=== PATIENT | male | born 1960 | race American Indian/Alaskan Native ===

== ENCOUNTER 2018-03-01 02:19 | Emergency (ER) | payer OTHER ==
[2018-03-01 03:30] LABS: Basophils # (Auto) 0.1 K/mm3 (0.0-0.1); Basophils % (Auto) 1.1 % (0.0-1.8); Eosinophils # (Auto) 0.1 K/mm3 (0.0-0.4); Eosinophils % (Auto) 1.9 % (0.0-4.3); Hematocrit 43.7 % (35.5-45.6); Hemoglobin 14.3 gm/dl (11.8-15.2); Lymphocytes # (Auto) 1.5 K/mm3 (1.2-5.4); Lymphocytes % (Auto) 24.7 % (13.4-35.0); Mean Corpuscular HGB Conc 33 % (32-34); Mean Corpuscular Hemoglobin 28 pg (28-32); Mean Corpuscular Volume 86 fl (84-94); Monocytes # (Auto) 0.4 K/mm3 (0.0-0.8); Monocytes % (Auto) 7.1 % (0.0-7.3); Platelet Count 173 K/mm3 (140-440); Red Blood Count 5.07 M/mm3 (3.65-5.03); Red Cell Distribution Width 14.3 % (13.2-15.2)
[2018-03-01 04:06] LABS: BUN/Creatinine Ratio 15; Blood Urea Nitrogen 22 mg/dL (9-20); Hemolysis Index 9
--- NOTE | 2018-03-01 06:40 | Emergency Department Report ---
ED Chest Pain HPI - General Chief Complaint: Chest Pain Stated Complaint: CHEST PAIN Time Seen by Provider: 03/01/18 06:38 Source: patient Mode of arrival: Ambulatory Limitations: No Limitations - History of Present Illness Initial Comments: 57-year-old male who is a rather poor historian. Apparently he was sent to have a cavity to have a "scan". I suspect this was a nuclear perfusion study done in [place]. The patient states he did not see a specialty person. He states this was 2 months ago and he "never received the results". He admits he is been having chest pain for quite some time. It was not specific about the actual duration of the symptoms. However the individual episodes can last for hours she states. The pain is "like electricity". It is in the substernal area radiating to the left shoulder and down the arm. He denies any pleuritic component. He denies any shortness of breath nausea vomiting or sweating. He is asymptomatic at this time. MD Complaint: chest pain -: month(s), year(s) Onset: during rest Pain Location: substernal, left chest Pain Radiation: LUE Severity: moderate Quality: other Consistency: now resolved Improves With: other (states he was given an unknown pill by his PMD) Worsens With: nothing re: denies: nausea, vomting, diaphoresis, dyspnea, sense of impending doom Other Symptoms: denies: cough, fever, syncope Treatments Prior to Arrival: other (a pill) - Related Data Allergies Allergy/AdvReac Type Severity Reaction Status Date / Time No Known Allergies Allergy Unverified 03/01/18 02:49 Heart Score - HEART Score History: Slightly suspicious EKG: Normal Age: 45-65 Risk factors: 1-2 risk factors Troponin: < normal limit HEART Score: 2 - Critical Actions Critical Actions: 0-3 pts:0.9-1.7%risk of adverse cardiac event.Candidate for discharge ED Review of Systems ROS: Stated complaint: CHEST PAIN Other details as noted in HPI Constitutional: denies: chills, fever Eyes: denies: eye pain, eye discharge, vision change ENT: denies: ear pain, throat pain Respiratory: denies: cough, shortness of breath, wheezing Cardiovascular: chest pain. denies: palpitations Endocrine: no symptoms reported Gastrointestinal: denies: abdominal pain, nausea, diarrhea Genitourinary: denies: urgency, dysuria Musculoskeletal: denies: back pain, joint swelling, arthralgia Skin: denies: rash, lesions Neurological: denies: headache, weakness, paresthesias Psychiatric: denies: anxiety, depression Hematological/Lymphatic: denies: easy bleeding, easy bruising ED Past Medical Hx - Past Medical History Previous Medical History?: No - Surgical History Past Surgical History?: No - Social History Smoking Status: Never Smoker Substance Use Type: None ED Physical Exam - General Limitations: No Limitations General appearance: alert, in no apparent distress - Head Head exam: Present: atraumatic, normocephalic - Eye Eye exam: Present: normal appearance. Absent: scleral icterus - ENT ENT exam: Present: mucous membranes moist - Neck Neck exam: Present: normal inspection. Absent: tenderness, meningismus - Respiratory Respiratory exam: Present: normal lung sounds bilaterally. Absent: respiratory distress - Cardiovascular Cardiovascular Exam: Present: regular rate, normal rhythm. Absent: systolic murmur, diastolic murmur, rubs, gallop - GI/Abdominal GI/Abdominal exam: Present: soft, normal bowel sounds. Absent: distended, tenderness, guarding, rebound, rigid - Rectal Rectal exam: Present: deferred - Extremities Exam Extremities exam: Present: normal inspection. Absent: pedal edema, calf tenderness - Back Exam Back exam: Present: normal inspection - Neurological Exam Neurological exam: Present: alert, oriented X3, CN II-XII intact. Absent: motor sensory deficit - Psychiatric Psychiatric exam: Present: normal affect, normal mood - Skin Skin exam: Present: warm, dry, intact, normal color. Absent: rash ED Course Vital Signs 03/01/18 03/01/18 03/01/18 02:47 02:49 05:07 Temperature 98.7 F Pulse Rate 87 85 82 Respiratory 17 Rate Blood Pressure 153/88 153/88 141/98 O2 Sat by Pulse 99 97 96 Oximetry - Reevaluation(s) Reevaluation #1: It was explained to the patient and further diagnostic evaluation was recommended and required. We attempted to get additional blood work as well as a chest x-ray. He refused. He was counseled as to the risks and benefits of going home now as opposed to further medical screening and was offered hospitalization. He declined this. He is mentally Better. He was encouraged to return any recurrent symptoms and to surely follow-up with his physician as soon as possible.. 03/01/18 06:54 TOBI score - Tobi Score Age > 65: (0) No Aspirin use within the Past 7 Days: (0) No 3 or more CAD Risk Factors: (0) No 2 or more Angina events in past 24 hrs: (0) No Known CAD with more than 50% Stenosis: (0) No Elevated Cardiac Markers: (0) No ST Deviation Greater than 0.5mm: (0) No TOBI Score: 0 ED Medical Decision Making - Lab Data Result diagrams: 03/01/18 03:19 03/01/18 03:19 Laboratory Results - last 24 hr 03/01/18 03/01/18 03/01/18 03:19 03:19 05:59 WBC 6.1 RBC 5.07 H Hgb 14.3 Hct 43.7 MCV 86 MCH 28 MCHC 33 RDW 14.3 Plt Count 173 Lymph % (Auto) 24.7 Mchenry % (Auto) 7.1 Eos % (Auto) 1.9 Baso % (Auto) 1.1 Lymph # 1.5 Mchenry # 0.4 Eos # 0.1 Baso # 0.1 Seg Neutrophils % 65.2 Seg Neutrophils # 4.0 Sodium 138 Potassium 3.9 Chloride 100.1 Carbon Dioxide 27 Anion Gap 15 BUN 22 H Creatinine 1.5 Estimated GFR 59 BUN/Creatinine Ratio 15 Glucose 138 H Calcium 9.0 Troponin T < 0.010 < 0.010 - EKG Data EKG shows normal: sinus rhythm, axis, intervals, QRS complexes, ST-T waves - EKG Data Interpretation: other (there are inverted T waves in V4 through 5 and nonspecific changes elsewhere. This is possibly consistent with ischemia) Critical care attestation.: If time is entered above; I have spent that time in minutes in the direct care of this critically ill patient, excluding procedure time. ED Disposition Clinical Impression: Abnormal EKG Chest pain Qualifiers: Chest pain type: unspecified Qualified Code(s): R07.9 - Chest pain, unspecified Disposition: LEFT AGAINST MED ADVICE Is pt being admited?: No Does the pt Need Aspirin: No Condition: Stable Instructions: Chest Pain (ED) Additional Instructions: Review of side out AGAINST MEDICAL ADVICE. I would certainly recommend admission and further evaluation via specialty person. Her EKG is not normal. In hospital evaluation was recommended. You understood the risks and benefits. Follow-up with your primary care physician. I have also given [facility] name of the specialty person on-call. Return as desired for further evaluation here. Referrals: LOCO AGUIRRE MD [Primary Care Provider] - 3-5 Days CARMEN SMITH MD [Staff Physician] - [facility] Time of Disposition: 06:57
[2018-03-01 06:52] VITALS: BP 149/89
== END 2018-03-01 07:17 | disposition left against medical advice (07) ==
LOC: ED 02:19
DX: R07.89 Other chest pain (principal); R94.31 Abnormal electrocardiogram [ECG] [EKG]
CPT/HCPCS: 36415; 80048; 84484; 85025; 93005; 93010; 99283